=== PATIENT | female | born 1990 | race Caucasian/White ===

== ENCOUNTER 2017-12-21 20:45 | Emergency (ER) | payer OTHER ==
[2017-12-21 20:50] VITALS: BP 136/92; PULSE 104; TEMP 98.3; BMI 24.2
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
[2017-12-21] MEDS ORDERED: ACETAMINOPHEN 500 MG TABLET (FP) PO ONE (21:52)
[2017-12-21] MEDS ORDERED: ACETAMINOPHEN 500 MG TABLET (FP) ONE (21:56)
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
== END 2017-12-21 22:52 | disposition home or self-care (01) ==
LOC: JERFT 20:45
DX: S13.4XXA Sprain of ligaments of cervical spine, initial encounter (principal); S09.8XXA Other specified injuries of head, initial encounter; V43.52XA Car driver injured in collision with other type car in traffic accident, initial encounter; Y92.488 Other paved roadways as the place of occurrence of the external cause; Y93.89 Activity, other specified; Y99.8 Other external cause status
CPT/HCPCS: 70450-TC; 72125-TC; 84703; 99281-25